=== PATIENT | female | born 1945 | race Caucasian/White ===

== ENCOUNTER 2016-07-27 12:44 | Emergency (ER) | payer MEDICARE, OTHER ==
[2016-07-27 13:00] VITALS: BP 140/91
[2016-07-27] MEDS ORDERED: Sodium Chloride 0.9% 10 ML Syringe FLUSH PRN (13:35)
[2016-07-27] MEDS ORDERED: Sodium Chloride 0.9% 1,000 ML IV ONE (13:36)
--- NOTE | 2016-07-27 14:19 | EDM.PDOC ---
ED HPI GENERAL MEDICAL PROBLEM - General Chief Complaint: Diabetic Complaint Stated Complaint: LOW BLOOD SUGARS/NOT FEELING WELL Time Seen by Provider: 07/27/16 13:10 Source of Information: Reports: Patient History Limitations: Reports: No Limitations - History of Present Illness INITIAL COMMENTS - FREE TEXT/NARRATIVE: Giovanna is a 70 year old female who presents to the ED today from surgery clinic for evaluation of hypoglycemia. Patient was undergoing an H. Pylori breath test for severe GERD when she became reportedly pale, diaphoretic, and nauseated. Patient had no vomiting, she did have a large amount of non-bloody diarrhea. 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 Patient reports her GERD was well controlled until a few years ago. Patient also reports ongoing issues with labile blood sugars. She will have an elevated blood sugar up to 270 and has been as low as 37. Patient reports "seizures" when her blood sugar gets to around 40, but she also states that when her blood sugar is that low she is able to crawl to the kitchen and take her glucose tablets and recheck her blood sugar until it has improved. Patient reports she takes her blood sugar several times in the evening every day as she is concerned it may become too low again and she lives alone with her cat. Patient reports she saw Endocrinology back in November and she was told to better control her diet and not other testing/ information was discussed. Patient reports she has never been diagnosed with diabetes but most of her family members are diabetic. Patient reports she eats well during the day, it sounds like she has a fair amount of carbohydrates in the morning followed by larger amounts of protein throughout the day. I asked patient is she sees a pattern to her blood sugars, she reports it doesn't seem to matter. Patient denies any abdominal pain or chest pain. Patient denies any blood in her stool. Patient denies any recent illness/fever. Patient reports that she was just switched to generic Nexium for her GERD and that her PCP wants her to start Precose to regulate her blood sugars. Patient on arrival here to the ED is feeling "much better". She denies any further nausea. Blood sugar checked on arrival and is 120. Onset: Gradual Duration: Other (5 Years) - Related Data Allergies Allergy/AdvReac Type Severity Reaction Status Date / Time azithromycin Allergy Cannot Verified 07/27/16 13:01 Remember Home Meds: Home Meds ALPRAZolam [Xanax] 1 tab PO BID PRN 07/27/16 [History] Acetaminophen/HYDROcodone [[place] 325-7.5 MG] 1 tab PO Q6H PRN 07/27/16 [History] Albuterol Sulfate [Proair Hfa] 2 puff INH Q4H PRN 07/27/16 [History] Albuterol [Proventil Neb Soln] 1 dose INH QID PRN 07/27/16 [History] Bisoprolol Fumarate/HCTZ [Ziac 10-6.25 MG] 1 tab PO DAILY 07/27/16 [History] Cetirizine [ZyrTEC] 1 tab PO DAILY 07/27/16 [History] Cholecalciferol (Vitamin D3) [Vitamin D3] 1 tab PO DAILY 07/27/16 [History] Cyanocobalamin (Vitamin B-12) [Cyanocobalamin Injection] 1 ml IM ASDIRECTED 03/03 [History] Esomeprazole Magnesium 40 mg PO DAILY 07/27/16 [History] Famciclovir 125 mg PO DAILY PRN 07/27/16 [History] Fluticasone Propionate [Flonase] 1 - 2 spray LAVON ASDIRECTED 07/27/16 [History] Ibuprofen 400 mg PO Q6H 07/27/16 [History] Ipratropium [Atrovent] 1 dose INH QID PRN 07/27/16 [History] Ondansetron [Zofran Odt] 1 tab PO ASDIRECTED 07/27/16 [History] SUMAtriptan Succinate [Imitrex] 1 tab PO DAILY 07/27/16 [History] Past Medical History HEENT History: Reports: Cataract Cardiovascular History: Reports: Hypertension Respiratory History: Reports: COPD Gastrointestinal History: Reports: Diverticulosis, GERD Genitourinary History: Reports: UTI, Recurrent Musculoskeletal History: Reports: Arthritis, Fracture, Fibromyalgia Neurological History: Reports: Concussion Psychiatric History: Reports: Anxiety Endocrine/Metabolic History: Reports: Diabetes, Type II, Other (See Below) Other Endocrine/Metabolic History: "reactive hypoglycemia". - Past Surgical History GI Surgical History: Reports: Appendectomy, Bariatric Procedure, Cholecystectomy , Other (See Below) Other GI Surgeries/Procedures: 2 nodules removed from colon. Female Surgical History: Reports: Tubal Ligation Oncologic Surgical History: Reports: Biopsy of Breast Social & Family History - Tobacco Use Smoking Status *Q: Former Smoker Used Tobacco, but Quit: Yes Month Tobacco Last Used: 0 Tobacco Use Comment: smoked 40 years ago. - Recreational Drug Use Recreational Drug Use: No ED ROS GENERAL - Review of Systems Review Of Systems: See Below Constitutional: Reports: No Symptoms, Weight Gain HEENT: Reports: Other (Tinnitus) Respiratory: Reports: No Symptoms Cardiovascular: Reports: No Symptoms Endocrine: Reports: High Glucose, Low Glucose GI/Abdominal: Reports: No Symptoms : Reports: No Symptoms Musculoskeletal: Reports: No Symptoms Skin: Reports: No Symptoms Neurological: Reports: No Symptoms Psychiatric: Reports: No Symptoms Hematologic/Lymphatic: Reports: No Symptoms Immunologic: Reports: No Symptoms ED EXAM GENERAL NO PERIP PULSE - Physical Exam Exam: See Below Exam Limited By: No Limitations General Appearance: Alert, WD/WN, No Apparent Distress Ears: Normal External Exam Respiratory/Chest: No Respiratory Distress, Lungs Clear, Normal Breath Sounds Cardiovascular: Normal Peripheral Pulses, Bradycardia GI/Abdominal: Normal Bowel Sounds, Non-Tender, No Organomegaly Extremities: Normal Inspection, Normal Range of Motion Neurological: Alert, Oriented, CN II-XII Intact Psychiatric: Normal Affect Skin Exam: Warm, Dry, Other (Pale) Course - Vital Signs Text/Narrative:: Giovanna is a delightful 70 year old female who presents to the ED today from surgery clinic for evaluation of hypoglycemia and not feeling well. Please refer to HPI and focused exam. Patient arrives here alert, oriented, reports she feels "much better" and blood sugar on arrival is 120. Patient has had ongoing issues with hypoglycemia, becoming for frequent over the last year. Patient was referred to Endocrinology in [place], [place] and was told to "change her diet" but reports no other information was discussed and she never had any further testing done. CMP, CBC and magnesium are all unremarkable from clinic today. I did check a lipase and TSH here in the ED which are also both WNL. A PIV was attempted for a liter of NS, nursing staff was unsuccessful after multiple attempts and patient was able to drink 1/2 liter of water without difficulty. I do not feel that any imaging is warranted today based on reassuring blood work. Patient did recheck her blood sugar while here independently and reports it was 96. I discussed with patient at length her daily dietary habits. She seems to be eating majority carbohydrates in the morning with nearly all protein the rest of the day. This very well could be playing a role in her difficulty to maintain a normal blood sugar. I educated patient on good protein choices and that I would like her to eat mostly protein at each meal with a modest amount of complex carbohydrates (a list of simple and complex carbohydrates was discussed and provided to patient at discharge). I would like patient to log her blood sugars for the next 1-2 weeks and during that time, follow up with another endocrinology group to be further evaluated. Referrals for nearby endocrinology were also provided to patient. I encouraged patient to keep a carbohydrate rich snack with her at all times to prevent severe hypoglycemia. Reasons to return to the ED were discussed in detail. Patient is agreeable to plan of care and questions were answered prior to discharge. Patient discharged in stable condition. Last Recorded V/S: Last Vital Signs Temp 35.4 C 07/27/16 12:59 Pulse 51 L 07/27/16 12:59 Resp 16 07/27/16 12:59 BP 140/91 H 07/27/16 12:59 Pulse Ox 100 07/27/16 12:59 - Orders/Labs/Meds Orders: Active Orders 24 hr Category Date Time Status Peripheral IV Care [RC] . DIRECTED Care 07/27/16 13:35 Active Sodium Chloride 0.9% [Saline Flush] Med 07/27/16 13:35 Active 10 ml FLUSH ASDIRECTED PRN Peripheral IV Insertion Adult [OM.PC] Routine Oth 07/27/16 13:35 Ordered Medication Orders Sodium Chloride (Saline Flush) 10 ml FLUSH ASDIRECTED PRN PRN Reason: Keep Vein Open Labs: Laboratory Tests 07/27/16 07/27/16 Range/Units 13:35 13:36 Lipase 207 (73-393) U/L TSH, Ultra Sensitive 2.590 (0.358-3.740) uIU/mL Meds: Medications Generic Name Dose Route Start Last Admin Trade Name Freq PRN Reason Stop Dose Admin Sodium Chloride 10 ml 07/27/16 13:35 Saline Flush FLUSH ASDIRECTED PRN Keep Vein Open Discontinued Medications Generic Name Dose Route Start Last Admin Trade Name Freq PRN Reason Stop Dose Admin Sodium Chloride 1,000 mls @ 999 mls/hr 07/27/16 13:36 Normal Saline IV 05/12/17 14:36 .BOLUS ONE Departure - Departure Time of Disposition: 15:30 Disposition: Home, Self-Care 01 Condition: good Clinical Impression: Hypoglycemia - Discharge Information Referrals: PCP,None [Primary Care Provider] - Forms: ED Department Discharge Additional Instructions: Benita Heredia have printed you a list of complex and simple carbohydrates for your reference. Please read through these and try to incorporate some complex carbohydrates into every meal. Have a snack with you at all times for when you feel like your blood sugar is getting low (snacks with carbohydrates in them, not just protein). Follow up with Endocrinology in the next 1-2 weeks. Please try to drink more water and log your blood sugars for your appointment. It was nice meeting you. Good luck with everything and take care. Have a wonderful Mother's Day. - My Orders Last 24 Hours: My Active Orders 07/27/16 13:35 Peripheral IV Care [RC] . DIRECTED Sodium Chloride 0.9% [Saline Flush] 10 ml FLUSH ASDIRECTED PRN Peripheral IV Insertion Adult [OM.PC] Routine - Assessment/Plan Last 24 Hours: My Active Orders 07/27/16 13:35 Peripheral IV Care [RC] . DIRECTED Sodium Chloride 0.9% [Saline Flush] 10 ml FLUSH ASDIRECTED PRN Peripheral IV Insertion Adult [OM.PC] Routine
== END 2016-07-27 15:44 | disposition home or self-care (01) ==
LOC: JP.ED 12:44
DX: E16.2 Hypoglycemia, unspecified (principal); I10 Essential (primary) hypertension; J44.9 Chronic obstructive pulmonary disease, unspecified; K21.9 Gastro-esophageal reflux disease without esophagitis; F41.9 Anxiety disorder, unspecified; E11.9 Type 2 diabetes mellitus without complications; Z90.49 Acquired absence of other specified parts of digestive tract; Z98.84 Bariatric surgery status; Z98.51 Tubal ligation status; Z98.890 Other specified postprocedural states; Z87.891 Personal history of nicotine dependence; Z79.899 Other long term (current) drug therapy; Z88.1 Allergy status to other antibiotic agents
CPT/HCPCS: 36415; 82962; 83690; 84443; 99283; 99285